=== PATIENT | male | born 1965 | race African-American/Black ===

== ENCOUNTER 2017-11-14 08:00 | Outpatient (CLI) | payer MEDICAID ==
[2017-11-14 13:29] LABS: BASOPHILS % (AUTO) 0.4 %; EOSINOPHILS # (AUTO) 0.2 10^3/uL (0.0-0.7); EOSINOPHILS % (AUTO) 2.9 %; LYMPHOCYTES # (AUTO) 3.3 10^3/uL (1.5-3.5); LYMPHOCYTES % (AUTO) 49.9 %; MEAN CORPUSCULAR HEMOGLOBIN 27.8 pg (27.0-31.0); MEAN CORPUSCULAR HGB CONC 32.1 g/dL (32.0-36.0); MEAN CORPUSCULAR VOLUME 86.6 fL (80.0-94.0); MEAN PLATELET VOLUME 9.4 fL (7.4-11.4); MONOCYTES # (AUTO) 0.5 10^3/uL (0.0-1.0); MONOCYTES % (AUTO) 8.1 %; NEUTROPHILS # (AUTO) 2.6 10^3/uL (1.5-6.6); NEUTROPHILS % (AUTO) 38.7 %; PLT - PLATELET COUNT 226 10^3/uL (130-450); RED BLOOD COUNT 5.39 10^6/uL (4.70-6.10); RED CELL DISTRIBUTION WIDTH 13.3 % (12.0-15.0); WHITE BLOOD COUNT 6.6 x10^3/uL (4.8-10.8)
[2017-11-14 13:55] LABS: HEMOGLOBIN A1C 0.71 g/dL
[2017-11-14 14:09] LABS: ALBUMIN 3.6 g/dL (3.2-5.5); ALBUMIN/GLOBULIN RATIO 0.9 (1.0-2.2); ALKALINE PHOSPHATASE 63 IU/L (42-121); ALT ALANINE AMINOTRANSFERASE 70 IU/L (10-60); AST ASPARTATE AMINOTRANSFERASE 41 IU/L (10-42); BILIRUBIN,TOTAL 0.7 mg/dL (0.2-1.0); BUN - BLOOD UREA NITROGEN 13 mg/dL (6-20); CARBON DIOXIDE - CO2 23 mmol/L (21-32); CHLORIDE 108 mmol/L (101-111); CHOL/HDL RATIO 2.3 (<5.0); CHOLESTEROL 118 mg/dL; CREATININE 0.8 mg/dL (0.6-1.2); GFR - MDRD 123 (>89); GLUCOSE 108 mg/dL (70-100); HDL CHOLESTEROL 52 mg/dL; LDL CHOLESTEROL,CALCULATED 52 mg/dL; SODIUM 137 mmol/L (135-145); TOTAL PROTEIN 7.8 g/dL (6.7-8.2); VLDL CHOLESTEROL 14 mg/dL
== END 2017-11-14 08:01 | disposition home or self-care (01) ==
LOC: LAB.N 08:00
PROVIDERS: ATTEND Family Medicine
DX: R73.01 Impaired fasting glucose (principal); N52.9 Male erectile dysfunction, unspecified; E66.9 Obesity, unspecified
CPT/HCPCS: 36415; 80053; 80061; 83036; 83721; 84443; 85025

== ENCOUNTER 2018-04-25 10:46 | Outpatient (CLI) | payer MEDICAID | END 2018-04-25 10:47 | disposition home or self-care (01) | LOC: SC 10:46 | PROVIDERS: ATTEND Internal Medicine Pulmonary Disease | DX: R06.81 Apnea, not elsewhere classified (principal); G47.10 Hypersomnia, unspecified; R06.83 Snoring; G47.8 Other sleep disorders; R06.89 Other abnormalities of breathing; R41.89 Other symptoms and signs involving cognitive functions and awareness | CPT/HCPCS: 99203; 99212 ==

== ENCOUNTER 2019-06-17 19:36 | Outpatient (CLI) | payer MEDICAID | END 2019-06-17 19:37 | disposition home or self-care (01) | LOC: SC 19:36 | PROVIDERS: ATTEND Internal Medicine Pulmonary Disease | DX: G47.61 Periodic limb movement disorder (principal); G47.10 Hypersomnia, unspecified | CPT/HCPCS: 95810 ==

== ENCOUNTER 2019-07-09 12:49 | Outpatient (CLI) | payer MEDICAID ==
--- NOTE | 2019-07-09 13:19 | SLEEP CARE CONSULTATION ---
Information from patient questionnaire entered by Rose Mary Alvarez. I have reviewed and concur with the information entered by Rose Mary Alvarez. This document represents the service I personally performed and the decisions made by me, Francisco Javier Kwong MD, [facility]. History of Present Illness Initial [place] Sleepiness Scale score: 24 Current [place] Sleepiness Scale score: 24 Additional HPI information: HPI: Mr. Parry returned for follow up of the sleep study he had on 06/17/2019. The polysomnography showed that the patient had slightly reduced sleep efficiency due to frequent awakenings after the sleep onset. The sleep architecture was abnormal for reduced amount of time spent in REM and slow wave sleep (N3). Respiratory monitoring showed no significant sleep disordered breathing (AHI = 2.2) or hypoxia (suzan oxygen saturation of 88%). The few respiratory events occurred mainly during supine sleep (supine AHI = 4.9; non- supine = 1.31). Snore was loud in intensity. There was mild periodic leg movement of sleep not associated with sleep fragmentation. Cardiac rhythm was normal sinus rhythm without significant arrhythmia. No abnormal behavior (parasomnia) observed during the night. The patient was informed of these findings. I explained to him that the sleep study was relatively normal except for the mild periodic leg movement of sleep. The patient denies being bothered by his legs. He did have surgeries to his feet. He continues to complain of shortness of breath. Allergies and Home Medications Drug allergies reviewed: Yes Home medication list reviewed: Yes Review of Systems Review of systems same as previous: Yes Physical Exam Height: 5 ft 7 in Weight: 295 lb Body Mass Index: 46.2 BMI Classification: Obesity Class 3 Impression and Plan IMPRESSION: 1. Primary Snore (ICD-10 R06.83), loud, but no significant sleep disordered breathing. He does not sleep on his back at home. He has lost some weight. Positive airway pressure therapy is not necessary at this time. 2. Periodic leg movement of sleep ICD G47.63, mild, without restless leg syndrome. The cause of periodic leg movement of sleep is typically unknown. Few known causes are iron deficiency, renal failure, and selective serotonin reuptake inhibitors. Iron and ferritin levels are recommended in addition to the routine blood work. PLAN: 1. Follow up with primary care provider. 2. Avoid weight regain. 3. Quit smoking 4. Return to the sleep clinic on as needed basis. I spent 100% of this visit face to face with the patient with greater than 50% of this was spent time counseling the patient and coordination of care.
== END 2019-07-09 12:50 | disposition home or self-care (01) ==
LOC: SC 12:49
PROVIDERS: ATTEND Internal Medicine Pulmonary Disease
DX: R06.83 Snoring (principal); G47.61 Periodic limb movement disorder; G47.10 Hypersomnia, unspecified; E66.9 Obesity, unspecified; Z68.42 Body mass index [BMI] 45.0-49.9, adult
CPT/HCPCS: 99212; 99213

== ENCOUNTER 2020-12-30 15:13 | Emergency (ER) | payer MEDICAID ==
[2020-12-30 15:27] VITALS: BP 140/100
--- NOTE | 2020-12-30 16:24 | ED Physician Documentation ---
History of Present Illness - Stated complaint Stated Complaint: HEADACHE/SORE THROAT/COUGH - Chief complaint Chief Complaint: General - History obtained from History obtained from: Patient - History of Present Illness Timing: Today Pain level max: 0 Pain level now: 0 - Additonal information Additional information: Patient has been sick for about a week. He states he was exposed to Covid about a week ago. Has not received his vaccine. Complains of dry cough, body aches and chills. Unclear if he has had fevers or not. Nothing makes it better or worse. Review of Systems Constitutional: reports: Chills. denies: Fever Nose: reports: Rhinorrhea / runny nose, Congestion Throat: denies: Sore throat Cardiac: denies: Chest pain / pressure Respiratory: reports: Cough. denies: Dyspnea, Wheezing GI: denies: Abdominal Pain, Nausea, Vomiting, Diarrhea Skin: denies: Rash Musculoskeletal: denies: Neck pain, Back pain Neurologic: denies: Headache PD PAST MEDICAL HISTORY - Past Medical History Cardiovascular: None Respiratory: Pneumonia Endocrine/Autoimmune: None : None HEENT: None Psych: None Musculoskeletal: Chronic back pain - Past Surgical History Past Surgical History: Yes - Present Medications Home Medications: Ambulatory Orders Medication Instructions Recorded Confirmed Cyclobenzaprine [Flexeril] 10 mg PO TID PRN #20 tablet 06/25/15 Oxycodone HCl/Acetaminophen 1 - 2 each PO Q6H PRN #14 tablet 06/25/15 [Percocet 5-325 mg Tablet] Cyclobenzaprine [Flexeril] 10 mg PO TID PRN #14 tablet 03/22/16 Ibuprofen [Motrin] 800 mg PO Q8H PRN #30 tablet 03/22/16 Benzonatate [Tessalon] 200 mg PO TID PRN #30 cap 12/30/20 Cetirizine HCl/Pseudoephedrine 1 each PO BID PRN #30 ea 12/30/20 [Zyrtec-D Tablet] - Allergies Allergies/Adverse Reactions: Allergies Allergy/AdvReac Type Severity Reaction Status Date / Time acetaminophen [From Vicodin] Allergy Itching Verified 12/30/20 15:22 hydrocodone bitartrate * Allergy Itching Verified 12/30/20 15:22 [From Vicodin] - Social History Does the pt smoke?: Yes Smoking Status: Current every day smoker Does the pt drink ETOH?: No Does the pt have substance abuse?: No - Immunizations Immunizations are current?: Yes - POLST Patient has POLST: No PD ED PE NORMAL - Vitals Vital signs reviewed: Yes - General General: Alert and oriented X 3, No acute distress, Well developed/nourished - HEENT HEENT: Moist mucous membranes - Neck Neck: Supple, no meningeal sign - Cardiac Cardiac: RRR, Strong equal pulses - Respiratory Respiratory: No respiratory distress, Clear bilaterally - Abdomen Abdomen: Soft, Non tender, Non distended - Derm Derm: Warm and dry - Extremities Extremities: No edema - Neuro Neuro: Alert and oriented X 3 - Psych Psych: Normal mood, Normal affect Results - Vitals Vitals: Vital Signs - 24 hr 12/30/20 15:22 Temperature 36.8 C Heart Rate 99 Respiratory 18 Rate Blood Pressure 140/100 H O2 Saturation 96 Oxygen O2 Source Room air PD MEDICAL DECISION MAKING - ED course Complexity details: considered differential, d/w patient ED course: Patient with Covid exposure. Requesting Covid test. This was performed. We will have the patient quarantine until results are available. No hypoxia. No respiratory distress. No indication for imaging at this time. Patient counseled regarding signs and symptoms for which I believe and urgent re- evaluation would be necessary. Patient with good understanding of and agreement to plan and is comfortable going home at this time This document was made in part using voice recognition software. While efforts are made to proofread this document, sound alike and grammatical errors may occur. Departure - Departure Disposition: 01 Home, Self Care Clinical Impression: Viral URI Condition: Good Instructions: ED URI Viral Follow-Up: EVELYN YOU MD [Primary Care Provider] - Within 1 week Prescriptions: Benzonatate [Tessalon] 200 mg PO TID PRN #30 cap PRN Reason: Cough Cetirizine HCl/Pseudoephedrine [Zyrtec-D Tablet] 1 each PO BID PRN #30 ea PRN Reason: nasal congestion Comments: You have a Covid test pending. You need to self quarantine until the result is done and negative. Do not leave your house. Do not get near anybody. The results should be done in 48 to 72 hours. We will call with a positive result, the fastest way to get a negative result for confirmation though is to go to the hospital website at [email or web address], click on the my [facility] tab and sign up for the patient portal. If any friends or family get sick and would like to have a Covid test done, but do not have signs or symptoms that would necessitate being hospitalized, we encourage testing through our coronavirus swabbing station, call [phone] to schedule an appointment. Discharge Date/Time: 12/30/20 16:45
== END 2020-12-30 16:45 | disposition home or self-care (01) ==
LOC: ED 15:13
DX: U07.1 COVID-19 (principal); F17.200 Nicotine dependence, unspecified, uncomplicated; J06.9 Acute upper respiratory infection, unspecified
CPT/HCPCS: 99283; 99284

== ENCOUNTER 2021-02-28 19:23 | Outpatient (CLI) | payer MEDICAID | END 2021-02-28 19:24 | disposition critical access hospital (66) | LOC: EMS 19:23 | DX: R10.9 Unspecified abdominal pain (principal); R11.2 Nausea with vomiting, unspecified | CPT/HCPCS: A0425; A0427; A0999 ==

== ENCOUNTER 2021-02-28 19:41 | Emergency (ER) | payer MEDICAID ==
--- NOTE | 2021-02-28 19:50 | ED Physician Documentation ---
PD HPI NVD - Stated complaint Stated Complaint: NAUSEA/ VOMITING - History obtained from History obtained from: Patient - History of Present Illness Timing - onset: How many hours ago (onset an hour ago of nausea wih vomiting, has vomited couple of times. friend called EMS and he is feeling improved enroute. Onset symptoms soon after eating donut bought this afternoon.) Timing - details: Abrupt onset Associated symptoms: No: Fever, Abdominal pain, Chest pain, Near syncope / syncope Contributing factors: Bad food (possible). No: Sick contact, Travel Improved by: Vomiting Similar symptoms before: Has not had sx before Review of Systems Constitutional: denies: Fever, Chills Nose: denies: Rhinorrhea / runny nose, Congestion Throat: denies: Sore throat Cardiac: denies: Chest pain / pressure, Palpitations Respiratory: denies: Dyspnea, Cough GI: reports: Nausea, Vomiting (couple of times in the past hour). denies: Abdominal Pain, Abdominal Swelling, Constipation, Diarrhea PD PAST MEDICAL HISTORY - Past Medical History Cardiovascular: None Respiratory: Pneumonia Endocrine/Autoimmune: None : None HEENT: None Psych: None Musculoskeletal: Chronic back pain - Past Surgical History Past Surgical History: Yes - Present Medications Home Medications: Ambulatory Orders Medication Instructions Recorded Confirmed Cyclobenzaprine [Flexeril] 10 mg PO TID PRN #20 tablet 06/25/15 Oxycodone HCl/Acetaminophen 1 - 2 each PO Q6H PRN #14 tablet 06/25/15 [Percocet 5-325 mg Tablet] Cyclobenzaprine [Flexeril] 10 mg PO TID PRN #14 tablet 03/22/16 Ibuprofen [Motrin] 800 mg PO Q8H PRN #30 tablet 03/22/16 Benzonatate [Tessalon] 200 mg PO TID PRN #30 cap 12/30/20 Cetirizine HCl/Pseudoephedrine 1 each PO BID PRN #30 ea 12/30/20 [Zyrtec-D Tablet] - Allergies Allergies/Adverse Reactions: Allergies Allergy/AdvReac Type Severity Reaction Status Date / Time acetaminophen [From Vicodin] Allergy Itching Verified 02/28/21 19:49 hydrocodone bitartrate * Allergy Itching Verified 02/28/21 19:49 [From Vicodin] - Social History Does the pt smoke?: Yes Smoking Status: Current every day smoker Does the pt drink ETOH?: No Does the pt have substance abuse?: No - Immunizations Immunizations are current?: Yes - POLST Patient has POLST: No PD ED PE NORMAL - Vitals Vital signs reviewed: Yes - General General: Alert and oriented X 3, Well developed/nourished - Neck Neck: Supple, no meningeal sign, No adenopathy - Cardiac Cardiac: RRR, No murmur - Respiratory Respiratory: Clear bilaterally - Abdomen Abdomen: Normal bowel sounds, Soft, Non tender, Non distended - Derm Derm: Normal color, Warm and dry Results - Vitals Vitals: Vital Signs - 24 hr 02/28/21 02/28/21 02/28/21 19:49 19:52 20:58 Temperature 36.5 C 36.5 C 36.5 C Heart Rate 95 95 88 Respiratory 18 18 18 Rate Blood Pressure 140/100 H 140/100 H 130/90 H O2 Saturation 96 98 98 Oxygen O2 Source Room air PD MEDICAL DECISION MAKING - ED course Complexity details: re-evaluated patient (he took PO well without problems. No further symptoms. ), considered differential (transietn nuasea and vomiting, and feeling better now. I do not see need for workup now. ), d/w patient Departure - Departure Disposition: 01 Home, Self Care Clinical Impression: Nausea and vomiting Qualifiers: Vomiting type: unspecified Vomiting Intractability: non-intractable Qualified Code(s): R11.2 - Nausea with vomiting, unspecified Condition: Stable Record reviewed to determine appropriate education?: Yes Instructions: ED Nausea Vomiting Comments: Unclear the cause of your symptoms at this point. You seem to be doing well now. Follow-up with your primary care or return to the ER if recurrent symptoms or episodes. Otherwise normal diet and intake of fluids. Discharge Date/Time: 02/28/21 20:58
[2021-02-28 21:00] VITALS: BP 130/90
== END 2021-02-28 20:58 | disposition home or self-care (01) ==
LOC: EDBD → EDUNIT# → ED 19:41
DX: R11.2 Nausea with vomiting, unspecified (principal); F17.200 Nicotine dependence, unspecified, uncomplicated
CPT/HCPCS: 99282; 99283

== ENCOUNTER 2021-04-28 03:14 | Emergency (ER) | payer MEDICAID ==
[2021-04-28 03:30] VITALS: BP 144/91
--- NOTE | 2021-04-28 03:34 | ED Physician Documentation ---
History of Present Illness - Stated complaint Stated Complaint: KNEE PX, R FT PX - Chief complaint Chief Complaint: Ext Problem - History obtained from History obtained from: Patient - History of Present Illness Timing: How many days ago (3 days (right heel pain)), Chronic (knee pain) Pain level now: 9 Improved by: rest Worsened by: weight-bearing, ambulation - Additonal information Additional information: c/o chronic bilateral knee pain and 2-3 days of right heel pain. Denies injury. He says he has not taken any medication, including over the counter medication, for this pain. He says he cannot get in to see a doctor in the outpatient setting. He is in ED with another patient who came by ambulance and he wanted to be evaluated for this pain while he was here in ED Review of Systems Constitutional: denies: Fever, Chills, Sweats Skin: denies: Rash Musculoskeletal: reports: Extremity pain (right heel), Joint pain (bilateral knees), Pain with weight bearing. denies: Neck pain, Back pain, Extremity swelling, Joint swelling Neurologic: denies: Focal weakness, Numbness PD PAST MEDICAL HISTORY - Past Medical History Cardiovascular: None Respiratory: Pneumonia Endocrine/Autoimmune: None : None HEENT: None Psych: None Musculoskeletal: Chronic back pain - Past Surgical History Past Surgical History: Yes - Present Medications Home Medications: Ambulatory Orders Medication Instructions Recorded Confirmed No Known Home Medications 04/28/21 04/28/21 - Allergies Allergies/Adverse Reactions: Allergies Allergy/AdvReac Type Severity Reaction Status Date / Time acetaminophen [From Vicodin] Allergy Itching Verified 04/28/21 03:27 hydrocodone bitartrate * Allergy Itching Verified 04/28/21 03:27 [From Vicodin] - Social History Does the pt smoke?: Yes Smoking Status: Current every day smoker Does the pt drink ETOH?: No Does the pt have substance abuse?: No - Immunizations Immunizations are current?: Yes - POLST Patient has POLST: No PD ED PE NORMAL - Vitals Vital signs reviewed: Yes - General General: Alert and oriented X 3, No acute distress, Other (obese male in NAD, asleep when I enter the room but awakens to voice) - Derm Derm: Normal color, Warm and dry, No rash - Extremities Extremities: No deformity, No tenderness to palpate, Normal ROM s pain, No edema, No calf tenderness / cord, Other (mild TTP right heel, plantar surface; no TTP of either knee. no erythema, no abnormal warmth to touch, no edema (k nees, right heel)) Results - Vitals Vitals: Vital Signs - 24 hr 04/28/21 04/28/21 03:28 03:34 Temperature 36.0 C L 36 C L Heart Rate 90 90 Respiratory 19 19 Rate Blood Pressure 144/91 H 144/91 H O2 Saturation 97 97 Oxygen O2 Source Room air PD MEDICAL DECISION MAKING - ED course Complexity details: reviewed old records, considered differential, d/w patient ED course: patient is in ED accompanying another ED patient who was brought in by ambulance. Patient says he wanted to be evaluated for his chronic knee pain and recurrent right heel pain while he was here. He is in NAD and unremarkable exam . Exam does not suggest acute process (infection, DVT). I note previous xrays performed in 2014 of left knee and both ankles indicated arthritic changes of the knee and right heel spur. I discussed with patient that emergent testing is not indicated at this time and an anti-inflammatory such as ibuprofen or aleve w ould be appropriate for short-term management. I instructed him to pursue outpatient follow up for this recurrent/ongoing joint and heel pain Departure - Departure Disposition: 01 Home, Self Care Clinical Impression: Polyarthralgia Condition: Good Instructions: ED Joint Pain, IBUPROFEN (Adult), ED Degenerative Joint Disease Comments: Emergent testing is not indicated at this time based on your description of your symptoms and the unremarkable physical examination that was performed. Your symptoms would be most consistent with arthritis. I note that xrays performed in 2014 demonstrated arthritis of the left knee and heel spurs of both feet, particularly on the right side, and arthritis tends to gradually worsen over time. You can take aleve or ibuprofen as directed (follow label instructions; both are available over the counter and thus no prescription is necessary). Follow up with your primary care provider as soon as can be arranged Discharge Date/Time: 04/28/21 08:25
[2021-04-28] MEDS ORDERED: IBUPROFEN 600 MG TABLET PO STA (04:18)
== END 2021-04-28 08:25 | disposition home or self-care (01) ==
LOC: ED 03:14
DX: M25.562 Pain in left knee (principal); M25.561 Pain in right knee; M25.571 Pain in right ankle and joints of right foot; F17.200 Nicotine dependence, unspecified, uncomplicated
CPT/HCPCS: 99282; A9270

== ENCOUNTER 2021-05-23 08:50 | Outpatient (CLI) | payer MEDICAID ==
[2021-05-23 10:31] LABS: BASOPHILS % (AUTO) 0.6 %; EOSINOPHILS # (AUTO) 0.1 10^3/uL (0.0-0.7); EOSINOPHILS % (AUTO) 1.7 %; HCT - HEMATOCRIT 53.5 % (42.0-52.0); HGB - HEMOGLOBIN 16.8 g/dL (14.0-18.0); LYMPHOCYTES # (AUTO) 3.2 10^3/uL (1.5-3.5); LYMPHOCYTES % (AUTO) 50.4 %; MEAN CORPUSCULAR HEMOGLOBIN 26.6 pg (27.0-31.0); MEAN CORPUSCULAR HGB CONC 31.4 g/dL (32.0-36.0); MEAN CORPUSCULAR VOLUME 84.7 fL (80.0-94.0); MEAN PLATELET VOLUME 11.8 fL (7.4-11.4); MONOCYTES # (AUTO) 0.5 10^3/uL (0.0-1.0); MONOCYTES % (AUTO) 7.6 %; NEUTROPHILS # (AUTO) 2.5 10^3/uL (1.5-6.6); NEUTROPHILS % (AUTO) 39.5 %; PLT - PLATELET COUNT 243 10^3/uL (130-450); RED BLOOD COUNT 6.32 10^6/uL (4.70-6.10); RED CELL DISTRIBUTION WIDTH 12.6 % (12.0-15.0); WHITE BLOOD COUNT 6.3 x10^3/uL (4.8-10.8)
[2021-05-23 10:35] LABS: ALBUMIN 3.6 g/dL (3.2-5.5); ALBUMIN/GLOBULIN RATIO 0.9 (1.0-2.2); BILIRUBIN,TOTAL 0.9 mg/dL (0.2-1.0); CREATININE 1.1 mg/dL (0.6-1.2); POTASSIUM 4.1 mmol/L (3.5-5.0); TOTAL PROTEIN 7.5 g/dL (6.7-8.2)
[2021-05-23 12:06] LABS: ESTIMATED AVERAGE GLUCOSE 166 mg/dL (70-100); HEMOGLOBIN A1c% 7.4 % (4.27-6.07)
== END 2021-05-23 23:59 | disposition home or self-care (01) ==
LOC: LAB.R 08:50
PROVIDERS: ATTEND Registered Nurse
DX: R79.89 Other specified abnormal findings of blood chemistry (principal); R68.89 Other general symptoms and signs; R73.09 Other abnormal glucose; R94.6 Abnormal results of thyroid function studies
CPT/HCPCS: 80050; 83036

== ENCOUNTER 2021-08-25 12:55 | Emergency (ER) | payer OTHER, MEDICAID ==
[2021-08-25 13:00] VITALS: BP 122/93
[2021-08-25] MEDS ORDERED: TETANUS/DIPHTHERIA/PERTUSSIS 0.5 ML SYRINGE IM ONE (13:04)
[2021-08-25] MEDS ORDERED: LIDOCAINE 2%-EPI 1:100000 20 ML MDV SUBQ STA (13:18)
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
== END 2021-08-25 15:08 | disposition home or self-care (01) ==
LOC: ED 12:55
DX: S05.42XA Penetrating wound of orbit with or without foreign body, left eye, initial encounter (principal); S09.90XA Unspecified injury of head, initial encounter; W20.8XXA Other cause of strike by thrown, projected or falling object, initial encounter; Y92.149 Unspecified place in prison as the place of occurrence of the external cause; F17.200 Nicotine dependence, unspecified, uncomplicated
CPT/HCPCS: 12002; 90471; 99282; 99284

== ENCOUNTER 2022-09-01 10:00 | Outpatient (CLI) | payer MEDICAID ==
[2022-09-01 11:53] LABS: BASOPHILS % (AUTO) 0.5 %; EOSINOPHILS # (AUTO) 0.1 10^3/uL (0.0-0.7); EOSINOPHILS % (AUTO) 1.9 %; HCT - HEMATOCRIT 48.4 % (42.0-52.0); LYMPHOCYTES % (AUTO) 47.4 %; MEAN CORPUSCULAR HEMOGLOBIN 26.8 pg (27.0-31.0); MEAN CORPUSCULAR VOLUME 86.4 fL (80.0-94.0); MEAN PLATELET VOLUME 11.4 fL (7.4-11.4); MONOCYTES # (AUTO) 0.6 10^3/uL (0.0-1.0); MONOCYTES % (AUTO) 8.8 %; NEUTROPHILS # (AUTO) 2.6 10^3/uL (1.5-6.6); NEUTROPHILS % (AUTO) 41.1 %; PLT - PLATELET COUNT 233 10^3/uL (130-450); RED CELL DISTRIBUTION WIDTH 13.2 % (12.0-15.0); WHITE BLOOD COUNT 6.3 x10^3/uL (4.8-10.8)
[2022-09-01 12:17] LABS: ALBUMIN 3.7 g/dL (3.2-5.5); ALBUMIN/GLOBULIN RATIO 0.9 (1.0-2.2); BILIRUBIN,TOTAL 0.4 mg/dL (0.2-1.0); CALCIUM 8.9 mg/dL (8.5-10.3); CREATININE 0.8 mg/dL (0.6-1.2); TOTAL PROTEIN 7.6 g/dL (6.7-8.2)
[2022-09-01 12:20] LABS: THYROID STIMULATING HORMONE 0.77 uIU/mL (0.34-5.60)
== END 2022-09-01 10:15 | disposition home or self-care (01) ==
LOC: LAB.N 10:00
PROVIDERS: ATTEND Family Medicine
DX: I10 Essential (primary) hypertension (principal); Z12.5 Encounter for screening for malignant neoplasm of prostate
CPT/HCPCS: 36415; 80050; 84153

== ENCOUNTER 2023-01-24 01:11 | Outpatient (CLI) | payer MEDICAID | END 2023-01-24 23:59 | disposition critical access hospital (66) | LOC: EMS 01:11 | DX: T50.901A Poisoning by unspecified drugs, medicaments and biological substances, accidental (unintentional), initial encounter (principal); R40.4 Transient alteration of awareness | CPT/HCPCS: A0425; A0427; A0999 ==

== ENCOUNTER 2023-01-24 01:25 | Emergency (ER) | payer MEDICAID ==
[2023-01-24] MEDS ORDERED: NALOXONE 0.4 MG/ML VIAL ONE ×2 (01:40→03:20)
[2023-01-24] MEDS ORDERED: NALOXONE 0.4 MG/ML VIAL IVP STA (01:46)
[2023-01-24] MEDS ORDERED: NALOXONE 2 MG in SODIUM CHLORIDE 0.9% 495 ML IV STA (01:49)
[2023-01-24] MEDS ORDERED: SODIUM CHLORIDE 0.9% 1,000 ML IV STA (01:49)
[2023-01-24 01:54] LABS: BASOPHILS % (AUTO) 0.4 %; EOSINOPHILS # (AUTO) 0.1 10^3/uL (0.0-0.7); EOSINOPHILS % (AUTO) 1.5 %; HGB - HEMOGLOBIN 15.9 g/dL (14.0-18.0); LYMPHOCYTES # (AUTO) 4.2 10^3/uL (1.5-3.5); MEAN CORPUSCULAR HEMOGLOBIN 26.7 pg (27.0-31.0); MEAN CORPUSCULAR HGB CONC 30.6 g/dL (32.0-36.0); MEAN CORPUSCULAR VOLUME 87.2 fL (80.0-94.0); MEAN PLATELET VOLUME 10.1 fL (7.4-11.4); MONOCYTES # (AUTO) 0.5 10^3/uL (0.0-1.0); MONOCYTES % (AUTO) 6.3 %; NEUTROPHILS # (AUTO) 3.2 10^3/uL (1.5-6.6); NEUTROPHILS % (AUTO) 39.3 %; PLT - PLATELET COUNT 207 10^3/uL (130-450); RED BLOOD COUNT 5.96 10^6/uL (4.70-6.10); RED CELL DISTRIBUTION WIDTH 13.2 % (12.0-15.0)
[2023-01-24 02:21] LABS: THYROID STIMULATING HORMONE 3.37 uIU/mL (0.34-5.60)
[2023-01-24 02:22] LABS: ACETAMINOPHEN 0.7 ug/mL; ALBUMIN 3.9 g/dL (3.2-5.5); ALBUMIN/GLOBULIN RATIO 1.1 (1.0-2.2); ALKALINE PHOSPHATASE 97 IU/L (42-121); ALT ALANINE AMINOTRANSFERASE 59 IU/L (10-60); AST ASPARTATE AMINOTRANSFERASE 48 IU/L (10-42); BILIRUBIN,TOTAL 0.5 mg/dL (0.2-1.0); BUN - BLOOD UREA NITROGEN 11 mg/dL (6-20); CALCIUM 9.1 mg/dL (8.5-10.3); CARBON DIOXIDE - CO2 25 mmol/L (21-32); CHLORIDE 103 mmol/L (101-111); CK- CREATINE KINASE 265 IU/L (30-223); ETOH - ETHANOL < 10.0 mg/dL; GFR - MDRD 93 (>89); GLUCOSE 222 mg/dL (74-104); LIPASE 24 U/L (11-82); MAGNESIUM 1.7 mg/dL (1.7-2.3); SODIUM 137 mmol/L (135-145); TOTAL PROTEIN 7.3 g/dL (6.4-8.9)
[2023-01-24 02:23] LABS: SALICYLATE < 1.5 mg/dL
--- NOTE | 2023-01-24 03:14 | ED Physician Documentation ---
PD HPI OVERDOSE - Stated complaint Stated Complaint: OD - Chief complaint Chief Complaint: Neuro - History obtained from History obtained from: EMS - Additional information Additional information: 57yM bibems s/p overdose with 13mg IN narcan administered by EMS for unresponsiveness and decreased respiratory drive. in the ED he required additional 2mg IV narcan with improvement in GCS to 13 (E3, V4,M6). he then states he used marijuana tonight. denies other drug use. further history limited by patient intoxication. PD PAST MEDICAL HISTORY - Past Medical History Cardiovascular: None Respiratory: Pneumonia Endocrine/Autoimmune: None : None HEENT: None Psych: None Musculoskeletal: Chronic back pain - Past Surgical History Past Surgical History: Yes - Present Medications Home Medications: Ambulatory Orders Medication Instructions Recorded Confirmed Sildenafil Citrate 100 mg PO DAILY PRN 01/24/23 01/24/23 - Allergies Allergies/Adverse Reactions: Allergies Allergy/AdvReac Type Severity Reaction Status Date / Time acetaminophen [From Vicodin] Allergy Itching Verified 01/24/23 01:43 hydrocodone bitartrate * Allergy Itching Verified 01/24/23 01:43 [From Vicodin] - Social History Does the pt smoke?: Yes Smoking Status: Current every day smoker Does the pt drink ETOH?: No Does the pt have substance abuse?: No - Immunizations Immunizations are current?: Yes - POLST Patient has POLST: No PD ED PE NORMAL - Vitals Vital signs reviewed: Yes - General General: Other (initially somnolent, then arousable to voice. protecting airway) - HEENT HEENT: Atraumatic, PERRL, EOMI, Moist mucous membranes, Pharynx benign - Neck Neck: Supple, no meningeal sign - Cardiac Cardiac: RRR - Respiratory Respiratory: No respiratory distress, Clear bilaterally - Back Back: No spinal TTP - Derm Derm: Normal color, Warm and dry - Neuro Eye Opening: To Voice Motor: Obeys Commands Verbal: Confused GCS Score: 13 - Psych Psych: Other (clinically intoxicated) Results - Vitals Vitals: Vital Signs - 24 hr 01/24/23 01/24/23 01/24/23 01:36 01:42 01:47 Temperature 36.2 C L Heart Rate 102 H 98 101 H Respiratory 23 18 22 Rate Blood Pressure 129/102 H 119/89 H 75/43 L O2 Saturation 90 L 95 87 L If not protocol : Oxygen Flow, liters/minute 01/24/23 01/24/23 01/24/23 01:53 02:00 02:30 Temperature Heart Rate 102 H 98 97 Respiratory 21 25 H 15 Rate Blood Pressure 112/79 113/71 114/88 H O2 Saturation 96 93 93 If not protocol 15 15 : Oxygen Flow, liters/minute 01/24/23 01/24/23 01/24/23 03:00 03:30 04:00 Temperature Heart Rate 96 94 88 Respiratory 13 12 15 Rate Blood Pressure 127/99 H 108/85 H 110/84 H O2 Saturation 97 96 92 If not protocol 15 : Oxygen Flow, liters/minute 01/24/23 01/24/23 04:30 05:00 Temperature Heart Rate 94 94 Respiratory 12 12 Rate Blood Pressure 122/92 H 125/78 O2 Saturation 90 L 90 L If not protocol 15 : Oxygen Flow, liters/minute Oxygen O2 Source Non-rebreather mask - EKG (time done) 0151 EKG releavant findings:: EKG personally interpreted by author of this note. Relevant findings are: Rate: Rate (enter#) (97) Rhythm: NSR Other comments: Other comments (significant artifact 2/2 patient movement) - Labs Labs: Laboratory Tests 01/24/23 01/24/23 01/24/23 01:46 01:46 01:46 WBC 8.0 RBC 5.96 Hgb 15.9 Hct 52.0 MCV 87.2 MCH 26.7 L MCHC 30.6 L RDW 13.2 Plt Count 207 MPV 10.1 Neut # (Auto) 3.2 Lymph # (Auto) 4.2 H [place] # (Auto) 0.5 Eos # (Auto) 0.1 Baso # (Auto) 0.0 Absolute Nucleated RBC 0.00 Nucleated RBC % 0.0 Sodium 137 Potassium 4.0 Chloride 103 Carbon Dioxide 25 Anion Gap 9.0 BUN 11 Creatinine 1.0 Estimated GFR (MDRD) 93 Glucose 222 H Calcium 9.1 Magnesium 1.7 Total Bilirubin 0.5 AST 48 H ALT 59 Alkaline Phosphatase 97 Total Creatine Kinase 265 H Troponin I High Sens 12.5 Total Protein 7.3 Albumin 3.9 Globulin 3.4 Albumin/Globulin Ratio 1.1 Lipase 24 TSH 3.37 Salicylates < 1.5 Acetaminophen 0.7 Ethyl Alcohol < 10.0 Procedures - General procedure General procedure: L tibial IO placed with good blood return. Flushing without difficulty. - Intubation - Major Medications: Etomidate, Rocuronium Blade: Glidescope Tube: Size-enter number (8), Cuffed, Marked at teeth-enter cm (23) Route: Oral Confirmation: Direct visualization, Bilateral breath sounds, No abdominal breath sound, End tidal CO2, Pulse ox, Chest xray Complications: No compications, Other (pulled back 2 cm since ett was just at the ara. note patient has significant bloody secretions requiring suctioning) PD Medical Decision Making - ED course ED course: 57yM presents s/p likely fentanyl overdose with 13mg IN narcan captain room service, f/by 2mg IV narcan here in the ED with improvement. Patient protecting airway, breathing spontaneously. CBC, abdominal panel, tox labs performed. looks okay with exception of some hyperglycemia and mildly elevated ck. 1L IVF administered. Likely will need to endorse to daytime ED MD at 7am shift change pending sobriety. Note patient has coughed up a couple streaks of blood. H &H is good. CXR ordered, showing aspiration pneumonia/pneumonitis. IV zosyn ordered. Discussed with Dr. Mccarthy for admission. Around 5- 6am patient had multiple episodes of oxygen desaturation and continuing to cough up blood. his o2 sat was persistently 90% on >15L facemask and he was laboring to breathe. Decision made to intubate. Kvng Ambriz CRNA was called in to assist and he was kind enough to place a R IJ at that time. d/w transfer center for transfer to hospital with bronchoscopic capabilities. Also suspect patient is experiencing beginnings of diffuse alveolar hemorrhage and will need more advanced level of care than our small critical access hospital can provide. d/w Dr. Brock, MICU attending who accepts in transfer. - Critical Care Time(min): 45 Time Includes: Direct patient care, Review records, Reassess patient, Document care, Coordinate care, Medical consult Data interpretation: Labs, Pulse ox, CXR Procedures included in critical care time: Peripheral IV, Ventilator mgmt Procedures excluded from critical care time: Central IV, Intraosseous, Intubation Departure - Departure Disposition: 02 Transfer Acute Care Hosp Clinical Impression: Overdose, Aspiration pneumonia, Pulmonary hemorrhage Condition: Serious
[2023-01-24] MEDS ORDERED: PIPERACILLIN/TAZOBACTAM 4.5 GM in SODIUM CHLORIDE 0.9% MINIBAG 100 ML IV STA (04:24)
[2023-01-24] MEDS ORDERED: SODIUM CHLORIDE FLUSH 0.9% 10 ML SYRINGE IVP PRN (05:22)
[2023-01-24] MEDS ORDERED: ONDANSETRON 4 MG/2 ML VIAL IVP PRN (05:22)
[2023-01-24] MEDS ORDERED: PROCHLORPERAZINE 10 MG/2 ML VIAL IVP PRN (05:22)
[2023-01-24] MEDS ORDERED: ETOMIDATE 40 MG/20 ML VIAL IVP ONE ×2 (05:33→05:45)
[2023-01-24] MEDS ORDERED: ROCURONIUM 50 MG/5 ML VIAL ONE (05:34)
--- NOTE | 2023-01-24 05:35 | HISTORY & PHYSICAL EXAMINATION ---
Chief Complaint - Chief Complaint Chief Complaint: opioid overdose, toxic encephalopathy History of Present Illness - Admitted From Admitted From:: ED - History Obtained From Records Reviewed: EMR History obtained from: ED staff and staff psychiatrist Exam Limitations: Tele medicine. Somnolent patient - History of Present Illness HPI Comment/Other: 57YOM obese and on as needed sidenafil only who presents to the ED for opioid overdose. Patient was found somnolent and improved mentation with Narcan. While alert earlier, patient reported to the ED staff that he had smoked questionable marijuana earlier. Patient's alertness subsequently waxed and waned in the ED. His respiratory status was tenuous. ED staff noted CXR with infiltrates suggestive of aspiration pnuemonitis vs pulmonary alveolar hemorrhage. ED staff noted patient is coughing up pinkish froth. His hypoxia is worsening while is he somnolent. ED staff reports planned intubation in the ED. History - Past Medical History Cardiovascular: reports: None Respiratory: reports: Pneumonia Endocrine/Autoimmune: reports: None : reports: None HEENT: reports: None Psych: reports: None Musculoskeletal: reports: Chronic back pain MRSA Hx?: No - POLST Patient has POLST: No Meds/Allgy - Home Medications Home Medications: Ambulatory Orders Medication Instructions Recorded Confirmed Sildenafil Citrate 100 mg PO DAILY PRN 01/24/23 01/24/23 - Allergies Allergies/Adverse Reactions: Allergies Allergy/AdvReac Type Severity Reaction Status Date / Time acetaminophen [From Vicodin] Allergy Itching Verified 01/24/23 01:43 hydrocodone bitartrate * Allergy Itching Verified 01/24/23 01:43 [From Vicodin] Review of Systems - Other Findings Other Findings: limited 2/2 somnolence Exam - Vital Signs Reviewed Vital Signs: Yes Vital Signs: Vital Signs x48h Temp Pulse Resp BP Pulse Ox O2 Flow Rate 01/24/23 05:00 94 12 125/78 90 L 01/24/23 04:30 94 12 122/92 H 90 L 15 01/24/23 04:00 88 15 110/84 H 92 01/24/23 03:30 94 12 108/85 H 96 15 01/24/23 03:00 96 13 127/99 H 97 01/24/23 02:30 97 15 114/88 H 93 15 01/24/23 02:00 98 25 H 113/71 93 15 01/24/23 01:53 102 H 21 112/79 96 01/24/23 01:47 101 H 22 75/43 L 87 L 01/24/23 01:36 36.2 C L 102 H 23 129/102 H 90 L - Physical Exam General Appearance: positive: No acute distress, Other (somnolent). negative: Alert ENT: positive: ENT inspection nml Neck: positive: Nml inspection Respiratory: positive: Rhonchi (per staff psychiatrist) Cardiovascular: positive: Regular rate & rhythm (per staff psychiatrist) Abdomen: positive: Non-tender, Nml bowel sounds Skin: positive: Color nml Extremities: positive: Nml appearance Neurologic/Psychiatric: positive: Other (somnolent). negative: Oriented x3, CN's nml (2-12) Conclusion/Plan - Problem List (1) Pulmonary alveolar hemorrhage Conclusion/Plan: likely 2/2 negative pressure pulmonary edema vs Narcan induced. alveolar hemorrhage noted on imaging in conjunction with pink frothy sputum and reported somnolence due to opioid overdose. continue vent support & O2 support. breathing treatment. monitor for signs of infection. consider reaching out to pulm/ICU if patient does not get better. (2) Acute respiratory failure with hypoxia Conclusion/Plan: 2/2 pulm edema and alverolar hemorrhage. continue c vent management and O2 support. breathing treatment. consider reaching out to pulm/ ICU if not better. r/o infection. (3) Toxic encephalopathy Conclusion/Plan: somnolent and altered 2/2 opioid overdose. recommend refraining from further opioid abuse. sedated with propofol while intubated but daily sedation holiday to assess neuro status. (4) Opioid overdose Conclusion/Plan: patient is getting intubated and airway secure. followup UDS. sedation with Propofol. reassess neuro status during sedation holiday. Qualifiers: Encounter type: initial encounter Injury intent: accidental or unintentional Qualified Code(s): T40.2X1A - Poisoning by other opioids, accidental (unintentional), initial encounter - Lab Results Lab results reviewed: Yes Fish Bones: 01/24/23 01:46 01/24/23 01:46 - Diagnostic Imaging Results Diagnostic Imaging Results: positive: Final report reviewed Diagnostic Imaging Results Comments: nbilatearl infiltrates 2/2 pneumonitis vs pulm hemorrhage. Core Measures - Anticipated LOS I expect patient to be DC'd or transferred within 96 hours.: No - Issues Hospital Issues and Management Plan: The patient consented to receive this telemedicine service, which I performed via live two-way audiovisual equipment. The patient is at ([facility]) and I am physically in [facility]. A nurse assisted me in the visit. - DVT/VTE - Prophylaxis VTE/DVT Device ordered at admit?: Yes Telemedicine Consult Details - Provider Location & Consult Time Telemedicine consultation conducted via videoconferencing?: Yes List names and roles of persons who participated in consult:: ED staff and staff psychiatrist Telemedicine provider location:: [facility] Time Telemedicine consult began:: 05:15 Time Telemedicine consult completed:: 06:20
[2023-01-24] MEDS ORDERED: ROCURONIUM 50 MG/5 ML VIAL IVP ONE (05:45)
[2023-01-24] MEDS ORDERED: IPRATROPIUM 0.2 MG/ML NEB INH SCH (06:00)
[2023-01-24] MEDS ORDERED: SODIUM CHLORIDE 0.9% 1,000 ML IV SCH (06:00)
[2023-01-24] MEDS ORDERED: PROPOFOL 1000 MG/100 ML 1,000 MG/100 ML BOTTLE IV SCH (06:00)
[2023-01-24] MEDS: fentaNYL 2,500 MCG in SODIUM CHLORIDE 0.9% 200 ML IV STA ×2 (06:07→07:15)
--- NOTE | 2023-01-24 06:19 | ANESTHESIA PROCEDURE NOTE ---
Anesth Central Line Template - Central Line Central Line Preparation: Unable to obtain consent, Time out completed, Ultra sound used, Sterile prep and drape Central line location: Right IJ Central line type: Triple lumen Central line catheter tip site resides: Superior vena cava (SVC) Central line aftercare: Chlorhexidine disc placed, Secured, Placement confirmed, No pneumothorax, No complications, Bundle checklist complete, Pt tolerated well, Other (secured at 17cm)
[2023-01-24 06:41] LABS: MUDS CUTOFF CONCENTRATIONS CUTOFF CONC BELOW:
[2023-01-24 06:49] LABS: BILIRUBIN,URINE NEGATIVE (NEGATIVE); GLUCOSE, URINE (UA) NEGATIVE (NEGATIVE); KETONES,URINE (UA) NEGATIVE (NEGATIVE); LEUKOCYTE ESTERASE, URINE NEGATIVE (NEGATIVE); NITRITE,URINE NEGATIVE (NEGATIVE); OCCULT BLOOD,URINE NEGATIVE (NEGATIVE); PROTEIN,URINE 30 mg/dL (NEGATIVE); UROBILINOGEN,URINE 0.2 (NORMAL) E.U./dL (NORMAL)
[2023-01-24 06:50] LABS: CLARITY,URINE CLEAR (CLEAR)
[2023-01-24] MEDS ORDERED: PANTOPRAZOLE 40 MG VIAL IVP SCH (07:00)
[2023-01-24 07:07] LABS: BACTERIA,URINE Rare /HPF (None Seen); CASTS, URINE 0-2 Hyaline Casts /LPF; RBC,URINE 0-5 /HPF (0-5); SQUAMOUS EPITHELIAL CELL,UR RARE Squamous (<= Few)
[2023-01-24 07:08] LABS: AMPHETAMINE SCREEN,URINE POSITIVE (NEGATIVE); BARBITURATE SCREEN,UR NEGATIVE (NEGATIVE); BENZODIAZEPINES SCREEN, URINE NEGATIVE (NEGATIVE); COCAINE SCREEN URINE POSITIVE (NEGATIVE); METHADONE SCREEN, URINE NEGATIVE (NEGATIVE); METHAMPHETAMINES SCREEN, URINE POSITIVE (NEGATIVE); OPIATE SCREEN, URINE POSITIVE (NEGATIVE); OXYCODONE SCREEN, URINE POSITIVE (NEGATIVE); PROPOXYPHENE SCREEN, URINE NEGATIVE (NEGATIVE); THC CANNABINOID SCREEN, URINE POSITIVE (NEGATIVE); TRICYCLIC ANTIDEPRESSANT,URINE NEGATIVE (NEGATIVE)
[2023-01-24 07:21] LABS: PT - PROTHROMBIN TIME 11.3 secs (9.9-12.6)
[2023-01-24 07:47] LABS: ABG BASE EXCESS -4.8 mmol/L (-2.0-3.0); ABG HCO3 23.2 mmol/L (22.0-26.0); ABG MODE OF VENTILATION ASSIST/CONTROL; ABG PCO2 54 mmHg (34-45); ABG PH 7.25 (7.35-7.45); ABG PO2 46 mmHg (80-100); ABG RESPIRATORY RATE 22 b/min; ABG TCO2 24.9 MMOL/L (21.0-29.0); ALLEN TEST POSITIVE
[2023-01-24 07:49] LABS: ABG OXYGEN SATURATION 79 % (94-98)
[2023-01-24] MEDS ORDERED: FUROSEMIDE 40 MG/4 ML VIAL IVP STA (08:01)
[2023-01-24] MEDS ORDERED: VECURONIUM 10 MG VIAL IVP STA (08:04)
--- NOTE | 2023-01-24 08:26 | XRAY Report ---
PROCEDURE: Chest 1 View X-Ray INDICATIONS: coughing small amount of blood. s/p OD TECHNIQUE: One view of the chest was acquired. COMPARISON: None. FINDINGS: Surgical changes and devices: None. Lungs and pleura: No pleural effusions or pneumothorax. Hazy airspace opacities are scattered in jennifer ateral upper to midlung field.. Mediastinum: Mediastinal contours appear normal. Heart size is normal. Bones and chest wall: No suspicious bony lesions. Overlying soft tissues appear unremarkable. IMPRESSION: Airspace opacities in bilateral upper to midlung joseph concerning for bilateral multilobar infiltrat es. No pleural effusion or pneumothorax. Findings are concordant with preliminary interpretation provided by [facility]. Reviewed by: Sam Acevedo MD on 01/24/2023 8:25 AM PDT Approved by: Sam Acevedo MD on 01/24/2023 8:25 AM PDT Station ID: [id number]
--- NOTE | 2023-01-24 08:33 | XRAY Report ---
PROCEDURE: Chest for Line Placement INDICATIONS: hypoxia TECHNIQUE: One view of the chest was acquired. COMPARISON: None. FINDINGS: Surgical changes and devices: Right-sided central venous catheter tip is in SVC. Enteric tube tip is in the region of stomach lumen below the left hemidiaphragm. ET tube tip is approximately 3.1 cm abo ve the ara.. Lungs and pleura: Blunting of left costophrenic angle is noted. No pneumothorax. Extensive airspace opacities are again seen scattered in bilateral lung joseph unchanged or slightly worsened compared t o earlier study. Mediastinum: Mediastinal contours appear normal. Heart size is normal. Bones and chest wall: No suspicious bony lesions. Overlying soft tissues appear unremarkable. IMPRESSION: Tube and line positions as described above and are in satisfactory positions. Extensive bilateral airspace opacities suggestive of multilobar infiltrates. No pneumothorax. Possibl e left pleural effusion with blunting of costophrenic angle. No significant discrepancies from preliminary reading. Reviewed by: Sam Acevedo MD on 01/24/2023 8:31 AM PDT Approved by: Sam Acevedo MD on 01/24/2023 8:31 AM PDT Station ID: [id number]
[2023-01-24] MEDS ORDERED: HEPARIN 5,000 UNIT/ML VIAL SUBQ SCH (09:00)
[2023-01-24] MEDS ORDERED: ALBUTEROL NEB 2.5 MG/3 ML INH SCH ×2 (09:00→13:00)
[2023-01-24] MEDS ORDERED: SODIUM CHLORIDE FLUSH 0.9% 10 ML SYRINGE IVP SCH (09:00)
--- NOTE | 2023-01-24 09:26 | ED Physician Documentation ---
ED Addendum - Addendum Addendum: Patient signed out to me by Dr. Lantigua at shift change. Patient was intubated for acute hypoxic respiratory failure. Concerns for developing arts. Awaiting transfer to the [facility]. 0833 D/W Dr. Calvo (, MICU) - Discussed concerns regarding patient's oxygenation and requesting help with ventilator settings. Reviewed current ventilator settings and O2 saturations. Recommends measuring patient's height to ensure that it is accurate and that we are using the appropriate estimate for his ideal body weight. We also can increase his PEEP from 12-16 and then increase by increments of 2 up to a max of 20. However he states that it will take some time to recruit so we should not expect to notice significant changes right away. I reviewed these Recommendations with Sydney TAO and respiratory therapist. Departure - Departure Disposition: 02 Transfer Acute Care Hosp Clinical Impression: Overdose, Aspiration pneumonia, Pulmonary hemorrhage Condition: Critical Forms: PCP List Discharge Date/Time: 01/24/23 11:25
[2023-01-24] MEDS ORDERED: ALBUTEROL NEB 2.5 MG/3 ML INH ONE (09:37)
[2023-01-24 09:40] LABS: ABG BASE EXCESS -3.7 mmol/L (-2.0-3.0); ABG HCO3 22.8 mmol/L (22.0-26.0); ABG PCO2 46 mmHg (34-45); ABG PH 7.31 (7.35-7.45); ABG PO2 50 mmHg (80-100); ABG TCO2 24.3 MMOL/L (21.0-29.0); ALLEN TEST POSITIVE
[2023-01-24 09:41] LABS: ABG MODE OF VENTILATION ASSIST/CONTROL; ABG RESPIRATORY RATE 22 b/min
[2023-01-24 09:42] LABS: ABG OXYGEN SATURATION 85 % (94-98)
[2023-01-24 10:07] VITALS: O2SAT 87
[2023-01-24 10:36] VITALS: BP 97/55
[2023-01-24] MEDS ORDERED: PROPOFOL 1000 MG/100 ML 1,000 MG/100 ML BOTTLE IV ONE (11:06)
== END 2023-01-24 11:25 | disposition short-term general hospital (02) ==
LOC: EDUNIT# → ED 01:25 → ICU 05:23 → UNDOADMIN 05:23 → ED 11:25
DX: T40.411A Poisoning by fentanyl or fentanyl analogs, accidental (unintentional), initial encounter (principal); J96.01 Acute respiratory failure with hypoxia; J69.0 Pneumonitis due to inhalation of food and vomit; R04.89 Hemorrhage from other sites in respiratory passages; G92.8 Other toxic encephalopathy; R73.9 Hyperglycemia, unspecified; R74.8 Abnormal levels of other serum enzymes; F17.200 Nicotine dependence, unspecified, uncomplicated; Z20.822 Contact with and (suspected) exposure to COVID-19
CPT/HCPCS: 31500; 36415; 36600; 36680; 51702; 80053; 80306; 80307; 80320; 80329; 81001; 81003; 82550; 82803; 83690; 83735; 84443; 84484; 85025; 85610; 85730; 87040; 87086; 93005; 94002; 94640; 94770; 99291

== ENCOUNTER 2023-08-10 17:38 | Emergency (ER) | payer MEDICAID, OTHER ==
[2023-08-10 17:47] VITALS: BP 141/107; O2SAT 100
--- NOTE | 2023-08-10 18:08 | ED Physician Documentation ---
History of Present Illness - Stated complaint Stated Complaint: RT THUMB INJURY - Chief complaint Chief Complaint: Ext Problem - History obtained from History obtained from: Patient - History of Present Illness Pain level max: 3 Pain level now: 2 - Additonal information Additional information: Patient is a 58-year-old male who presents to the emergency department in police custody. He states that he has had right thumb pain for the past 2 weeks. Noted deformity for the past 2 weeks as well. Worse with movement, better with rest. No bleeding. No fevers. No redness. No swelling. Patient is right- handed. He does not recall any specific injury to the thumb. Review of Systems Constitutional: denies: Fever, Chills GI: denies: Nausea, Vomiting, Diarrhea Skin: denies: Rash Musculoskeletal: denies: Neck pain, Back pain Neurologic: denies: Headache PD PAST MEDICAL HISTORY - Past Medical History Past Medical History: Yes Cardiovascular: None Respiratory: Pneumonia Endocrine/Autoimmune: None : None HEENT: None Psych: None Musculoskeletal: Chronic back pain - Past Surgical History Past Surgical History: Yes - Present Medications Home Medications: Ambulatory Orders Medication Instructions Recorded Confirmed No Known Home Medications 08/10/23 08/10/23 - Allergies Allergies/Adverse Reactions: Allergies Allergy/AdvReac Type Severity Reaction Status Date / Time acetaminophen [From Vicodin] Allergy Itching Verified 08/10/23 17:46 hydrocodone bitartrate * Allergy Itching Verified 08/10/23 17:46 [From Vicodin] - Social History Does the pt smoke?: Yes Smoking Status: Current every day smoker Does the pt drink ETOH?: No Does the pt have substance abuse?: No - Immunizations Immunizations are current?: Yes - POLST Patient has POLST: No PD ED PE NORMAL - Vitals Vital signs reviewed: Yes - General General: Alert and oriented X 3, No acute distress - HEENT HEENT: Moist mucous membranes - Derm Derm: Warm and dry - Extremities Extremities: Other (R thumb - Deformity, pain and swelling to the MCP joint of the right thumb. Has full range of motion, but with pain. Neurovascular intact. Otherwise normal examination of the right hand) - Neuro Neuro: Alert and oriented X 3 - Psych Psych: Normal mood, Normal affect Results - Vitals Vitals: Vital Signs - 24 hr 08/10/23 17:42 Temperature 35.6 C L Heart Rate 94 Respiratory 20 Rate Blood Pressure 141/107 H O2 Saturation 100 Oxygen O2 Source Room air - Rads (name of study) R thumb xay Relevant Findings:: Final report received, See rad report PD Medical Decision Making - ED course Complexity details: reviewed results, re-evaluated patient, considered differential, d/w patient ED course: No acute findings on x-ray of the right thumb. Possible ligamentous injury? Possible chronic deformity of the thumb. Neurovascular intact. Patient is able to move his thumb without any difficulty. Does not recall any specific injury. His other thumb has a similar though less pronounced appearance of the deformit y. We will place in a thumb spica splint and have him follow-up with his PCP for further care. Patient counseled regarding signs and symptoms for which I believe and urgent re-evaluation would be necessary. Patient with good understanding of and agreement to plan and is comfortable going home at this time This document was made in part using voice recognition software. While efforts are made to proofread this document, sound alike and grammatical errors may occur. Departure - Departure Disposition: 01 Home, Self Care Clinical Impression: Sprain of right thumb Qualifiers: Encounter type: initial encounter Sprain of finger site: unspecified site Qualified Code(s): S63.601A - Unspecified sprain of right thumb, initial encounter Condition: Good Instructions: ED Sprain Finger Follow-Up: your,doctor in 1 week [Other] Comments: Your x-ray does not show any evidence of fracture or dislocation. Please follow-up with your doctor for further care. We will place you in a splint in case there is a ligamentous injury. You can wear this as needed for comfort. Forms: PCP List Discharge Date/Time: 08/10/23 18:58
--- NOTE | 2023-08-10 18:34 | XRAY Report ---
PROCEDURE: Finger(s) RT INDICATIONS: R thumb pain x 2 weeks TECHNIQUE: AP hand, 2 views of the first finger(s) acquired. COMPARISON: None. FINDINGS: Bones: No fractures or dislocations. No suspicious bony lesions. 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 Scattered arthritic IP narrowing is present. Th is is most prominent at the first CMC joint. Soft tissues: No suspicious soft tissue calcifications or masses. 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 Reviewed by: Elsa Lin MD on 08/10/2023 6:32 PM [facility] Approved by: Elsa Lin MD on 08/10/2023 6:32 PM [facility] Station ID: [id number]
== END 2023-08-10 18:58 | disposition home or self-care (01) ==
LOC: EDUNIT# → ED 17:38
DX: S63.601A Unspecified sprain of right thumb, initial encounter (principal); X58.XXXA Exposure to other specified factors, initial encounter; F17.200 Nicotine dependence, unspecified, uncomplicated
CPT/HCPCS: 99283

== ENCOUNTER 2023-12-19 08:00 | Outpatient (CLI) | payer MEDICAID ==
[2023-12-19 21:15] LABS: BASOPHILS % (AUTO) 0.6 %; EOSINOPHILS # (AUTO) 0.2 10^3/uL (0.0-0.7); EOSINOPHILS % (AUTO) 2.9 %; HCT - HEMATOCRIT 44.5 % (42.0-52.0); HGB - HEMOGLOBIN 13.6 g/dL (14.0-18.0); LYMPHOCYTES # (AUTO) 2.4 10^3/uL (1.5-3.5); LYMPHOCYTES % (AUTO) 46.4 %; MEAN CORPUSCULAR HEMOGLOBIN 26.5 pg (27.0-31.0); MEAN CORPUSCULAR HGB CONC 30.6 g/dL (32.0-36.0); MEAN CORPUSCULAR VOLUME 86.6 fL (80.0-94.0); MEAN PLATELET VOLUME 11.5 fL (7.4-11.4); MONOCYTES # (AUTO) 0.4 10^3/uL (0.0-1.0); MONOCYTES % (AUTO) 8.2 %; NEUTROPHILS # (AUTO) 2.2 10^3/uL (1.5-6.6); NEUTROPHILS % (AUTO) 41.7 %; PLT - PLATELET COUNT 185 10^3/uL (130-450); RED BLOOD COUNT 5.14 10^6/uL (4.70-6.10); WHITE BLOOD COUNT 5.2 x10^3/uL (4.8-10.8)
[2023-12-19 21:33] LABS: ALBUMIN 3.9 g/dL (3.2-5.5); ALBUMIN/GLOBULIN RATIO 1.1 (1.0-2.2); BILIRUBIN,TOTAL 0.4 mg/dL (0.2-1.0); CALCIUM 9.2 mg/dL (8.5-10.3); CREATININE 0.8 mg/dL (0.6-1.3); POTASSIUM 3.9 mmol/L (3.5-4.5); TOTAL PROTEIN 7.4 g/dL (6.4-8.9)
== END 2023-12-19 23:59 | disposition home or self-care (01) ==
LOC: LAB.N 08:00
PROVIDERS: ATTEND Physician Assistant
DX: R22.43 Localized swelling, mass and lump, lower limb, bilateral (principal)
CPT/HCPCS: 36415; 80053; 83880; 85025

== ENCOUNTER 2024-02-14 15:43 | Emergency (ER) | payer MEDICAID ==
[2024-02-14 16:28] VITALS: O2SAT 100
--- NOTE | 2024-02-14 18:59 | ED Physician Documentation ---
PD HPI WOUND RECHECK - Stated complaint Stated Complaint: LT LEG WOUND - Chief complaint Chief Complaint: Wound - Histroy obtained from History obtained from: Patient - History of Present Illness Associated symptoms: Swelling. No: Fever - Additional information Additional information: Patient is a 58-year-old male who presents to the emergency department stating that his dog scratched him on the right lower extremity a month or so ago, states having increasing pain and drainage from the wound. He usually goes to the walk-in clinic but decided to come here instead. He has had swelling to the bilateral lower extremities. This has been ongoing, improved with the Lasix he was prescribed from his PCP. Tetanus up-to-date. Nothing makes it better or worse. Review of Systems Constitutional: denies: Fever, Chills GI: denies: Vomiting, Diarrhea PD PAST MEDICAL HISTORY - Past Medical History Past Medical History: Yes Cardiovascular: None Respiratory: Pneumonia, Sleep apnea Neuro: None Endocrine/Autoimmune: None : None HEENT: None Psych: None Musculoskeletal: Chronic back pain - Past Surgical History Past Surgical History: Yes - Present Medications Home Medications: Ambulatory Orders Medication Instructions Recorded Confirmed Amox/Clav 875/125 [Augmentin] 1 tab PO Q12H #20 tablet 02/14/24 Doxycycline [Vibramycin] 100 mg PO BID #20 tablet 02/14/24 oxyCODONE [Roxicodone] 5 mg PO Q6H PRN #10 tablet MDD 6 02/14/24 - Allergies Allergies/Adverse Reactions: Allergies Allergy/AdvReac Type Severity Reaction Status Date / Time acetaminophen [From Vicodin] Allergy Itching Verified 02/14/24 16:04 hydrocodone bitartrate * Allergy Itching Verified 02/14/24 16:04 [From Vicodin] - Social History Does the pt smoke?: Yes Smoking Status: Current every day smoker Does the pt drink ETOH?: No Does the pt have substance abuse?: Yes Substance Use and Type: Marijuana - Immunizations Immunizations are current?: Yes - POLST Patient has POLST: No PD ED PE NORMAL - Vitals Vital signs reviewed: Yes - General General: Alert and oriented X 3, No acute distress - HEENT HEENT: Moist mucous membranes - Neck Neck: Supple, no meningeal sign - Cardiac Cardiac: RRR - Respiratory Respiratory: No respiratory distress, Clear bilaterally - Derm Derm: Warm and dry - Extremities Extremities: Other (Bilateral lower extremity pitting edema. Mainly up to the knees bilaterally. Neurovascular intact. On the right lower extremity there are 2 small open wounds, approximately 1.5 cm each. Slight yellow drainage. Mild erythema. No streaking.) - Neuro Neuro: Alert and oriented X 3 Results - Vitals Vitals: Vital Signs - 24 hr 02/14/24 02/14/24 16:04 19:25 Temperature 36.2 C L 36.5 C Heart Rate 106 H 88 Respiratory 20 18 Rate Blood Pressure 134/95 H 130/90 H O2 Saturation 100 100 Oxygen O2 Source Room air PD Medical Decision Making - ED course Complexity details: considered differential, d/w patient ED course: 58-year-old male with chronic bilateral lower extremity edema. He also has 2 open wounds on the right lower extremity. These are close to each other on the leg. Mepitel was placed over these wounds and an outer bandage was applied. We will place on antibiotics for home. Recommend that he follow-up closely with his PCP and will likely need a referral to wound care. He will need further evaluation for diabetes, peripheral vascular disease, etc. that would put him at risk for chronic nonhealing wounds. Afebrile. No evidence of sepsis. Will prescribe a small amount of pain medication as well. No evidence of DVT. No evidence of necrotizing soft tissue infection. Patient counseled regarding signs and symptoms for which I believe and urgent re-evaluation would be necessary. Patient with good understanding of and agreement to plan and is comfortable going home at this time This document was made in part using voice recognition software. While efforts are made to proofread this document, sound alike and grammatical errors may occur. Departure - Departure Disposition: 01 Home, Self Care Clinical Impression: Chronic wound Cellulitis Qualifiers: Site of cellulitis: extremity Site of cellulitis of extremity: lower extremity Laterality: right Qualified Code(s): L03.115 - Cellulitis of right lower limb Condition: Good Instructions: ED Infec Skin Cellulitis, ED Wound Care Follow-Up: your,doctor in 3-5 days [Other] Prescriptions: Amox/Clav 875/125 [Augmentin] 1 tab PO Q12H #20 tablet oxyCODONE [Roxicodone] 5 mg PO Q6H PRN #10 tablet MDD 6 PRN Reason: pain Doxycycline [Vibramycin] 100 mg PO BID #20 tablet Comments: Your prescriptions were sent to [facility] in [place]. Please follow-up with your doctor for further care. It is important to follow-up with your doctor for ongoing wound care to ensure that this heals properly. You also need to be checked for diabetes, peripheral vascular disease and other causes of slow healing wounds. Please return if you worsen. I am prescribing a short course of narcotic pain medication for you. These are potentially dangerous and addictive medications that should be used carefully. These medications may constipate you. Take an [id number] stool softener (docusate) twice daily with plenty of water while taking these medications. If you go 24 hours without a bowel movement, take [id number] miralax, per package instructions. Do not drink or drive while taking these medications. If you received narcotic or sedating medications while in the emergency department, do not drive for 24 hours. Store this medication in a safe, secure place and out of reach of children. It is a violation of federal law to give or sell this medication to another person or to use in a manner other than prescribed. The ED will not refill narcotic prescriptions, including prescriptions lost or stolen. To dispose of unwanted medications: 1. [facility] [address] in [place] has a medication drop box. They accept prescription medications (in pill form) Tuesday through Tuesday 9:00 a.m. to 5:00 p.m. 2. The [facility] [employer] accepts prescription medications (in pill form only) for disposal year round. Call for more information. 3. Contact the [facility] for the next [facility] sponsored prescription drug collection event. , [phone], or [phone]; Forms: PCP List Discharge Date/Time: 02/14/24 19:25
[2024-02-14] MEDS: oxyCODONE 5 MG TABLET PO STA (19:16)
[2024-02-14] MEDS: DOXYCYCLINE 100 MG TABLET PO STA (19:16)
[2024-02-14] MEDS: AMOX/CLAV 875 MG/125 MG TABLET PO STA (19:17)
[2024-02-14 19:32] VITALS: BP 130/90
== END 2024-02-14 19:25 | disposition home or self-care (01) ==
LOC: ED 15:43
DX: S81.801A Unspecified open wound, right lower leg, initial encounter (principal); L03.115 Cellulitis of right lower limb; X58.XXXA Exposure to other specified factors, initial encounter; R60.0 Localized edema; F17.200 Nicotine dependence, unspecified, uncomplicated
CPT/HCPCS: 99283; A9270